=== PATIENT | female | born 1950 | race American Indian/Alaskan Native ===

== ENCOUNTER 2018-01-08 07:45 | Outpatient (CLI) | payer MEDICARE ==
--- NOTE | 2018-01-08 11:46 | XRay Report ---
X-RAY BILATERAL WRIST THREE VIEWS EACH: 01/08/18 CLINICAL: Bilateral wrist pain. 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 Minimal osteoarthritis at the radiolunate and capitolunate articulations. Osteoarthritis at the first MCP joint and the IP joint of the. No fracture is dislocation. Normal soft tissues. Left: The carpal bones are intact. No fracture or dislocation. Mild osteoarthritis at the basal joint of the thumb and moderate osteoarthritis at the first MCP joint. Normal soft tissues. IMPRESSION: 1. 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 2. Normal left wrist. 3. 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
== END 2018-01-08 07:46 | disposition home or self-care (01) ==
LOC: SPVIMAG 07:45
PROVIDERS: ATTEND Orthopaedic Surgery
DX: M18.9 Osteoarthritis of first carpometacarpal joint, unspecified (principal)